=== PATIENT | male | born 1935 | race Caucasian/White ===

== ENCOUNTER 2019-05-24 18:20 | Inpatient (IN) | payer MEDICARE, BC ==
[2019-05-24 19:49] LABS: Basophils # (A) 0.1 k/uL (0-0.2); Basophils % (A) 1 %; Eosinophils # (A) 0.2 k/uL (0-0.7); Eosinophils % (A) 4 %; HCT 34.9 % (39.0-53.0); HGB 11.4 gm/dL (13.0-17.5); Hypochromasia Slight; Lymphocytes # (A) 1.3 k/uL (1.0-4.8); Lymphocytes % (A) 22 %; MCH 26.9 pg (25.0-35.0); MCHC 32.6 g/dL (31.0-37.0); MCV 82.6 fL (80.0-100.0); Mean Platelet Volume 6.2; Monocytes # (A) 0.5 k/uL (0-1.0); Monocytes % (A) 9 %; Neutrophils # (A) 3.5 k/uL (1.3-7.7); Neutrophils % (A) 62 %; Platelet Count 289 k/uL (150-450); RBC 4.23 m/uL (4.30-5.90); RDW 14.3 % (11.5-15.5); WBC 5.7 k/uL (3.8-10.6)
[2019-05-24 19:55] LABS: Albumin 3.5 g/dL (3.5-5.0); Calcium 8.9 mg/dL (8.4-10.2); Magnesium 1.9 mg/dL (1.6-2.3); Potassium 4.1 mmol/L (3.5-5.1); Total Bilirubin 0.8 mg/dL (0.2-1.3); Total Protein 6.8 g/dL (6.3-8.2)
[2019-05-24 20:05] LABS: D-Dimer 0.48 mg/L FEU (<0.60); Partial Thromboplastin Time 46.6 sec (22.0-30.0); Prothrombin Time 50.1 sec (9.0-12.0)
[2019-05-24 20:11] LABS: INR 5.2 (<1.2)
--- NOTE | 2019-05-24 20:25 | XR ---
EXAMINATION: XR chest 2V DATE AND TIME: 05/24/2019 7:34 PM CLINICAL INDICATION: PHH; difficulty breathing TECHNIQUE: Departmental protocol COMPARISON: None FINDINGS: There is a moderate right pleural effusion with prominent right lung base airlessness and associated silhouetting of the right hemidiaphragm. There is a smaller left pleural effusion with less left lung base airlessness. The upper and midlung zone show a mild reticular pattern of increased attenuation silhouetting the pu lmonary vasculature to a mild degree, suggesting mild pulmonary edema, interstitial phase. The cardia c silhouette is moderately enlarged. The skeletal structures and soft tissues are negative for acute findings. IMPRESSION: 1. BILATERAL PLEURAL EFFUSIONS AND BIBASILAR ATELECTASIS, GREATER ON THE RIGHT. CONCURRENT BRONCHOPN EUMONIA CAN BE CLINICALLY CONSIDERED. 2. Mild cardiogenic interstitial phase pulmonary edema pattern.
--- NOTE | 2019-05-24 20:48 | ED ---
SOB HPI - General Chief Complaint: Shortness of Breath Stated Complaint: KYLE Time Seen by Provider: 05/24/19 18:25 Source: patient Mode of arrival: wheelchair Limitations: no limitations - History of Present Illness Initial Comments: The patient is an 84-year-old male with past history of A. fib and congestive heart failure who presents to the emergency room with reported shortness of breath. Daughter is at bedside and helps provide history. States the patient has been hospitalized multiple times with past several months. He has suffered from shortness of breath however this has gotten progressively worse. Daughter states the patient cannot relate across a room without becoming short of breath. He also suffers from orthopnea and is forced to sleep in a chair. He does report to progressive bilateral lower extremity swelling. He has been hospitalized for diuresis. He was improved however has worsened again. He denies a cough or hemoptysis. No chest pain. States he was referred to an EP physician however has yet to see him. It has been recommended that the patient have cardioversion because of his symptoms. He is not on any rate controlling medications. The patient is on Coumadin for the A. fib as well as for bilateral lower extremity DVTs. The patient does have a [place] filter in place. Reports that he has been recently evaluated for PEs and they were negative. Denies hemoptysis, hematemesis. No changes in his bowel or bladder habits. There are no other alleviating, precipitating or modifying factors - Related Data Home Medications Medication Instructions Recorded Confirmed Furosemide [Lasix] 20 mg PO MOWEFR 05/24/19 05/24/19 HYDROcodone/APAP 5-325MG [[place] 1 tab PO BID 05/24/19 05/24/19 5-325] HYDROcodone/APAP 5-325MG [[place] 1 tab PO DAILY@1200 PRN 05/24/19 05/24/19 5-325] Lisinopril [Zestril] 2.5 mg PO DAILY 05/24/19 05/24/19 Omeprazole 20 mg PO BID 05/24/19 05/24/19 Previous Rx's Medication Instructions Recorded Carvedilol [Coreg] 3.125 mg PO BID-W/MEALS #60 tab 05/27/19 Potassium Chloride ER [K-Dur 20] 20 meq PO MOWEFR #12 tab.er.prt 10/28/19 Warfarin [Coumadin] 2.5 mg PO DAILY #0 05/27/19 Allergies Allergy/AdvReac Type Severity Reaction Status Date / Time Penicillins Allergy Swelling Verified 05/24/19 18:28 Review of Systems ROS Statement: Those systems with pertinent positive or pertinent negative responses have been documented in the HPI. ROS Other: All systems not noted in ROS Statement are negative. Past Medical History Past Medical History: Cancer, GERD/Reflux, Hyperlipidemia History of Any Multi-Drug Resistant Organisms: None Reported Past Surgical History: Back Surgery, Hernia Repair, Joint Replacement Past Psychological History: No Psychological Hx Reported Smoking Status: Former smoker Past Alcohol Use History: None Reported Past Drug Use History: None Reported General Exam Limitations: no limitations General appearance: alert, in no apparent distress Head exam: Present: atraumatic, normocephalic, normal inspection Eye exam: Present: normal appearance, PERRL, EOMI. Absent: scleral icterus, conjunctival injection, periorbital swelling ENT exam: Present: normal exam, mucous membranes moist Neck exam: Present: normal inspection. Absent: tenderness, meningismus, lymphadenopathy Respiratory exam: Present: rales, accessory muscle use. Absent: respiratory distress, wheezes, rhonchi, stridor Cardiovascular Exam: Present: regular rate, irregular rhythm, normal heart sounds. Absent: systolic murmur, diastolic murmur, rubs, gallop, clicks GI/Abdominal exam: Present: soft, normal bowel sounds. Absent: distended, tenderness, guarding, rebound, rigid Extremities exam: Present: normal inspection, full ROM, normal capillary refill. Absent: tenderness, pedal edema, joint swelling, calf tenderness Back exam: Present: normal inspection Neurological exam: Present: alert, oriented X3, CN II-XII intact Psychiatric exam: Present: normal affect, normal mood Skin exam: Present: warm, dry, intact, normal color. Absent: rash Course Vital Signs 05/24/19 05/24/19 05/24/19 18:23 20:00 21:14 Temperature 97.4 F L Pulse Rate 76 79 81 Respiratory 18 18 18 Rate Blood Pressure 135/80 139/98 139/92 O2 Sat by Pulse 98 99 99 Oximetry 05/24/19 22:00 Temperature 97.9 F Pulse Rate 73 Respiratory 18 Rate Blood Pressure 153/89 O2 Sat by Pulse 99 Oximetry Medical Decision Making - Medical Decision Making Upon arrival the patient is placed into room 7. A thorough history and physical exam is performed. A 12-lead EKG is performed which demonstrates A. fib with a controlled ventricular rate. Any time the patient does get up and move around in bed his heart rate does elevate. I did recommend laboratory studies and a chest x-ray. Hemoglobin is 11.4. INR 5.2. D-dimer is 0.48. BNP is elevated at 2560. Troponin 0.029. Chest x-ray does demonstrate signs of volume overload. There are bilateral pleural effusions as well as interstitial pulmonary edema. I discussed these results the patient. I did recommend diuresis. I did give the patient 40 mg of IV Lasix. I did recommend hospital admission for cardiology consult. I discussed case with Dr. Camarillo accepted admission for the patient. I will hold the patient's Coumadin tonight. The patient was in agreement with the treatment plan and he is awaiting a bed on the floor - Lab Data Result diagrams: 05/25/19 06:38 05/26/19 06:16 Lab Results 05/24/19 05/24/19 05/24/19 Range/Units 19:15 19:15 19:15 WBC 5.7 (3.8-10.6) k/uL RBC 4.23 L (4.30-5.90) m/uL Hgb 11.4 L (13.0-17.5) gm/dL Hct 34.9 L (39.0-53.0) % MCV 82.6 (80.0-100.0) fL MCH 26.9 (25.0-35.0) pg MCHC 32.6 (31.0-37.0) g/dL RDW 14.3 (11.5-15.5) % Plt Count 289 (150-450) k/uL Neutrophils % 62 % Lymphocytes % 22 % Monocytes % 9 % Eosinophils % 4 % Basophils % 1 % Neutrophils # 3.5 (1.3-7.7) k/uL Lymphocytes # 1.3 (1.0-4.8) k/uL Monocytes # 0.5 (0-1.0) k/uL Eosinophils # 0.2 (0-0.7) k/uL Basophils # 0.1 (0-0.2) k/uL Hypochromasia Slight PT 50.1 H (9.0-12.0) sec INR 5.2 H* (<1.2) APTT 46.6 H (22.0-30.0) sec D-Dimer 0.48 (<0.60) mg/L FEU Sodium 138 (137-145) mmol/L Potassium 4.1 (3.5-5.1) mmol/L Chloride 105 (98-107) mmol/L Carbon Dioxide 25 (22-30) mmol/L Anion Gap 8 mmol/L BUN 22 H (9-20) mg/dL Creatinine 0.97 (0.66-1.25) mg/dL Est GFR (CKD-EPI)AfAm 83 (>60 ml/min/1.73 sqM) Est GFR (CKD-EPI)NonAf 72 (>60 ml/min/1.73 sqM) Glucose 116 H (74-99) mg/dL Calcium 8.9 (8.4-10.2) mg/dL Magnesium 1.9 (1.6-2.3) mg/dL Total Bilirubin 0.8 (0.2-1.3) mg/dL AST 24 (17-59) U/L ALT 17 L (21-72) U/L Alkaline Phosphatase 108 (38-126) U/L Troponin I (0.000-0.034) ng/mL NT-Pro-B Natriuret Pep pg/mL Total Protein 6.8 (6.3-8.2) g/dL Albumin 3.5 (3.5-5.0) g/dL 05/24/19 05/24/19 Range/Units 19:15 19:15 WBC (3.8-10.6) k/uL RBC (4.30-5.90) m/uL Hgb (13.0-17.5) gm/dL Hct (39.0-53.0) % MCV (80.0-100.0) fL MCH (25.0-35.0) pg MCHC (31.0-37.0) g/dL RDW (11.5-15.5) % Plt Count (150-450) k/uL Neutrophils % % Lymphocytes % % Monocytes % % Eosinophils % % Basophils % % Neutrophils # (1.3-7.7) k/uL Lymphocytes # (1.0-4.8) k/uL Monocytes # (0-1.0) k/uL Eosinophils # (0-0.7) k/uL Basophils # (0-0.2) k/uL Hypochromasia PT (9.0-12.0) sec INR (<1.2) APTT (22.0-30.0) sec D-Dimer (<0.60) mg/L FEU Sodium (137-145) mmol/L Potassium (3.5-5.1) mmol/L Chloride (98-107) mmol/L Carbon Dioxide (22-30) mmol/L Anion Gap mmol/L BUN (9-20) mg/dL Creatinine (0.66-1.25) mg/dL Est GFR (CKD-EPI)AfAm (>60 ml/min/1.73 sqM) Est GFR (CKD-EPI)NonAf (>60 ml/min/1.73 sqM) Glucose (74-99) mg/dL Calcium (8.4-10.2) mg/dL Magnesium (1.6-2.3) mg/dL Total Bilirubin (0.2-1.3) mg/dL AST (17-59) U/L ALT (21-72) U/L Alkaline Phosphatase (38-126) U/L Troponin I 0.029 (0.000-0.034) ng/mL NT-Pro-B Natriuret Pep 2560 pg/mL Total Protein (6.3-8.2) g/dL Albumin (3.5-5.0) g/dL - EKG Data EKG Comments: EKG demonstrates atrial fibrillation with a ventricular rate 78. QRS 78. QTC 456. No acute ST segment elevations or depressions concerning for ischemic changes Disposition Clinical Impression: Congestive heart failure, Acute respiratory failure, Pleural effusion Disposition: ADMITTED IP TO THIS HOSP Condition: Good Is patient prescribed a controlled substance at d/c from ED?: No Decision to Admit Reason: Admit from EC Decision Date: 05/24/19 Decision Time: 20:57
[2019-05-24] MEDS ORDERED: FUROSEMIDE 10 MG/ML 4 ML VIAL IV STA (20:56)
[2019-05-24] MEDS ORDERED: NALOXONE 0.4 MG/ML 1 ML VIAL IV PRN (22:00)
[2019-05-24 23:04] VITALS: BMI 29.7
[2019-05-24] MEDS: HYDROcodone/APAP 5-325MG 1 EACH TAB PO SCH (23:24)
[2019-05-25] MEDS: PANTOPRAZOLE 40 MG TABLET PO SCH (06:04)
[2019-05-25] MEDS ORDERED: BUMETANIDE 0.25 MG/ML 4 ML VIAL IVP STA (06:38)
[2019-05-25 07:10] LABS: Basophils % (A) 1 %; Eosinophils # (A) 0.3 k/uL (0-0.7); Eosinophils % (A) 5 %; HCT 34.4 % (39.0-53.0); Hypochromasia Moderate; Lymphocytes # (A) 1.2 k/uL (1.0-4.8); Lymphocytes % (A) 22 %; MCH 26.8 pg (25.0-35.0); MCV 83.8 fL (80.0-100.0); Mean Platelet Volume 6.1; Monocytes # (A) 0.5 k/uL (0-1.0); Monocytes % (A) 9 %; Neutrophils # (A) 3.3 k/uL (1.3-7.7); Neutrophils % (A) 61 %; Platelet Count 262 k/uL (150-450); RDW 14.2 % (11.5-15.5); WBC 5.3 k/uL (3.8-10.6)
[2019-05-25 07:13] LABS: INR 4.6 (<1.2); Prothrombin Time 43.9 sec (9.0-12.0)
[2019-05-25 07:25] LABS: Calcium 8.7 mg/dL (8.4-10.2); Potassium 3.9 mmol/L (3.5-5.1)
[2019-05-25] MEDS: LISINOPRIL 2.5 MG TAB PO SCH (08:22)
[2019-05-25] MEDS: HYDROcodone/APAP 5-325MG 1 EACH TAB PO SCH ×2 (08:22→19:17)
[2019-05-25] MEDS ORDERED: HYDROcodone/APAP 5-325MG 1 EACH TAB PO SCH (09:00)
--- NOTE | 2019-05-25 09:53 | P.CRDCN ---
History of Present Illness Consult date: 05/25/19 Reason for Consult (text): A. fib with controlled ventricular rate, acute exacerbation of CHF History of present illness: This is an 84-year-old male patient of Dr. Wright with past medical history of chronic atrial fibrillation, chronic heart failure, DVT, gastroesophageal reflux disease, hyperlipidemia, DVT in the left leg status post [place] filter. Patient states he was initially diagnosed with atrial fibrillation about 3 months ago and has been following with Dr. Wright. He had a recent hospitalization March at [facility]. He underwent a left heart catheterization that showed mild to moderate nonobstructive coronary artery disease. Echocardiogram revealed EF of 50%. He was again hospitalized in April at [facility] time he was treated for right lower extremity cellulitis, persistent atrial fibrillation. He last saw Dr. Wright 2 weeks ago. He had a 24-hour Holter monitor in place. He received a call from Dr. Wright last night while the patient was in the emergency center to update him on the monitor but he did not give him the results at that time. Patient presented to [facility] emergency center due to shortness of breath much worse with exertion along with lower extremity edema. He has had some weight gain but in general he has been losing weight. He denies any cough or sputum production. He also experienced heaviness in his chest. His troponins were 0.029, 0.030, 0.033, INR 5.2, BUN 22 and creatinine 0.92. Hemoglobin 11.0, WBC 5.3, platelet count 262. I's were within normal limits. ProBNP 2560. EKG atrial fibrillation rate controlled. Patient was giving Lasix 40 mg IV push and Bumex 1 mg IV push in the emergency center. Patient states he has been up urinating every 1-2 times every hour. Edema is much improved. Heaviness in his chest is resolved. Review Of Systems: Constitutional: No fever, no chills, no night sweats. No weight change. No weakness, fatigue or lethargy. No daytime sleepiness. EENT: No headache. No blurred vision or double vision, no loss of vision. No loss of Hearing, no ringing in the ears, no dizziness. No nasal drainage or congestion. No epistaxis. No sore throat. Lungs: No shortness of breath, cough, no sputum production. No wheezing. Cardiovascular: Reports chest heaviness, reports lower extremity edema. No palpitations. No paroxysmal nocturnal dyspnea. No orthopnea. No lightheaded ness or dizziness. No syncopal episodes. Abdominal: No abdominal pain. No nausea, vomiting. No diarrhea. No constipation. No bloody or tarry stools.. No loss of appetite. Genitourinary: No dysuria, increased frequency, urgency. No urinary retention. Musculoskeletal: No myalgias. No muscle weakness, no gait dysfunction, no frequent falls. No back pain. No neck pain. Integumentary: No wounds-cellulitis resolved, no lesions. No rash or pruritus. No unusual bruising. No change in hair or nails. Neurologic: No aphasia. No facial droop. No change in mentation. No head injury. No headache. No paralysis. No paresthesia. Psychiatric: No depression. No anxiety. No mood swings. Endocrine: No abnormal blood sugars. No weight change. No excessive sweating or thirst. No cold intolerance. No weight change. Gen: This is an 84-year-old male. HEENT: Head is atraumatic, normocephalic. Pupils equal, round. Sclerae is anicteric. NECK: Supple. No JVD. No lymphadenopathy. No thyromegaly. LUNGS: Diminished in the bilateral bases. No wheezes or rhonchi. No intercostal retractions. HEART: Irregular rate and rhythm. No murmur. ABDOMEN: Soft. Bowel sounds are present. No masses. No tenderness. EXTREMITIES: No pedal edema. No calf tenderness. No cellulitis noted to the r ight lower extremity. SCDs in place. NEUROLOGICAL: Patient is awake, alert and oriented x3. Cranial nerves 2 through 12 are grossly intact. Assessment: Chronic atrial fibrillation with controlled response Acute exacerbation of diastolic heart failure with known EF of 50% Mild elevation in troponin, acute coronary syndrome ruled out History of coronary artery disease Gastroesophageal reflux disease Hyperlipidemia Plan: The patient will be started on Lasix 40 mg IV twice daily and potassium 20 mEq twice daily Start Coreg 3.125 mg twice daily Continue lisinopril 2.5 mg daily Repeat electrolytes and renal function in the morning Monitor I&O and daily weights I thank you kindly for this consultation we will be happy to follow along with you. Nurse practitioner note has been reviewed, I agree with documented findings and plan of care. Patient was seen and examined. Past Medical History Past Medical History: Atrial Fibrillation, Cancer, Heart Failure, Deep Vein Thrombosis (DVT), GERD/Reflux, Hyperlipidemia, Prostate Disorder Additional Past Medical History / Comment(s): Prostate CA with radiation and surgery; Skin CA with removal; emphysema; Diagnosed with AFib 2 months ago 02/2019; Halter Monitor removed last week 05/17/19; [place] filter placed for history DVT in left leg. History of Any Multi-Drug Resistant Organisms: None Reported Past Surgical History: Back Surgery, Hernia Repair, Joint Replacement Additional Past Surgical History / Comment(s): [place] filter placed 1999; Back surgery in 1999 Past Anesthesia/Blood Transfusion Reactions: No Reported Reaction Past Psychological History: No Psychological Hx Reported Smoking Status: Former smoker Past Alcohol Use History: None Reported Past Drug Use History: None Reported Medications and Allergies Home Medications Medication Instructions Recorded Confirmed Type Furosemide [Lasix] 20 mg PO MOWEFR 05/24/19 05/24/19 History HYDROcodone/APAP 5-325MG [[place] 1 tab PO BID 05/24/19 05/24/19 History 5-325] HYDROcodone/APAP 5-325MG [[place] 1 tab PO DAILY@1200 PRN 05/24/19 05/24/19 History 5-325] Lisinopril [Zestril] 2.5 mg PO DAILY 05/24/19 05/24/19 History Omeprazole 20 mg PO BID 05/24/19 05/24/19 History Warfarin [Coumadin] 2.5 mg PO TUTHSA 05/24/19 05/24/19 History Warfarin [Coumadin] 5 mg PO SUMOWEFR 05/24/19 05/24/19 History Allergies Allergy/AdvReac Type Severity Reaction Status Date / Time Penicillins Allergy Swelling Verified 05/24/19 18:28 Physical Exam Vitals: Vital Signs Temp Pulse Pulse Resp BP BP Pulse Ox 05/25/19 08:00 97.5 F L 85 18 126/69 100 05/25/19 03:04 68 18 119/71 98 05/24/19 23:18 97.5 F L 93 18 128/85 97 05/24/19 22:00 97.9 F 73 18 153/89 99 05/24/19 21:14 81 18 139/92 99 05/24/19 20:00 79 18 139/98 99 05/24/19 18:23 97.4 F L 76 18 135/80 98 Intake and Output 05/24/19 05/25/19 05/25/19 22:59 06:59 14:59 Intake Total 240 240 Output Total 1150 150 Balance -910 90 Intake: Oral 240 240 Output: Urine 1150 150 Other: Voiding Method Urinal # Voids 1 Weight 94.801 kg 92.2 kg Results 05/25/19 06:38 05/25/19 06:38 Cardiac Enzymes 05/24/19 05/24/19 05/25/19 Range/Units 19:15 19:15 00:57 AST 24 (17-59) U/L Troponin I 0.029 0.030 (0.000-0.034) ng/mL 05/25/19 Range/Units 06:38 AST (17-59) U/L Troponin I 0.033 (0.000-0.034) ng/mL Coagulation 05/24/19 05/25/19 Range/Units 19:15 06:38 PT 50.1 H 43.9 H (9.0-12.0) sec APTT 46.6 H (22.0-30.0) sec CBC 05/24/19 05/25/19 Range/Units 19:15 06:38 WBC 5.7 5.3 (3.8-10.6) k/uL RBC 4.23 L 4.10 L (4.30-5.90) m/uL Hgb 11.4 L 11.0 L (13.0-17.5) gm/dL Hct 34.9 L 34.4 L (39.0-53.0) % Plt Count 289 262 (150-450) k/uL Comprehensive Metabolic Panel 05/24/19 05/25/19 Range/Units 19:15 06:38 Sodium 138 140 (137-145) mmol/L Potassium 4.1 3.9 (3.5-5.1) mmol/L Chloride 105 104 (98-107) mmol/L Carbon Dioxide 25 28 (22-30) mmol/L BUN 22 H 21 H (9-20) mg/dL Creatinine 0.97 1.02 (0.66-1.25) mg/dL Glucose 116 H 99 (74-99) mg/dL Calcium 8.9 8.7 (8.4-10.2) mg/dL AST 24 (17-59) U/L ALT 17 L (21-72) U/L Alkaline Phosphatase 108 (38-126) U/L Total Protein 6.8 (6.3-8.2) g/dL Albumin 3.5 (3.5-5.0) g/dL Current Medications Generic Name Dose Route Start Last Admin Trade Name Freq PRN Reason Stop Dose Admin Hydrocodone Bitart/Acetaminophen 1 each 05/25/19 12:00 [place] 5-325 PO DAILY@1200 PRN Pain Hydrocodone Bitart/Acetaminophen 1 each 05/24/19 23:15 05/25/19 08:22 [place] 5-325 PO 1 each BID JHOAN Administration Lisinopril 2.5 mg 05/25/19 09:00 05/25/19 08:22 Zestril PO 2.5 mg DAILY JHOAN Administration Naloxone HCl 0.2 mg 05/24/19 22:00 Narcan IV Q2M PRN Opioid Reversal Pantoprazole Sodium 40 mg 05/25/19 07:30 05/25/19 06:04 Protonix PO 40 mg DAILY@0730 JHOAN Administration Intake and Output 05/24/19 05/25/19 05/25/19 22:59 06:59 14:59 Intake Total 240 240 Output Total 1150 150 Balance -910 90 Intake: Oral 240 240 Output: Urine 1150 150 Other: Voiding Method Urinal # Voids 1 Weight 94.801 kg 92.2 kg 05/25/19 06:38 05/25/19 06:38
--- NOTE | 2019-05-25 10:48 | P.HPIM ---
History of Present Illness H&P Date: 05/25/19 Chief Complaint: Shortness breath This is 84 years old male with past apical history significant for multiple hospitalization for atrial fibrillation and cardiac condition presents to the emergency department with shortness of breath. Patient stated that since last admission to the hospital he was discharged on Lasix to be taken every other day and patient felt worsening in his lower extremity edema associated with gradual worsening shortness of breath where patient was not able to ambulate in his house the way he used to bruit before and required short breaks during transfers while fixing his meals and doing his daily activity escalated to worsening shortness of breath with minimal activities even when turning his self and bed and later patient was not able to sleep and bed and was sleeping in recliner short of breath most of the time and decided to come into the emergency department. Chest x-ray showed vascular congestion, BNP was elevated, troponin was slightly elevated patient was started on Lasix and admitted for further evaluation. Patient denied any recent upper respiratory symptoms, fever, chills, nausea, vomiting, dumping, dizziness, lightheadedness or dysuria stated that his been in his regular state of health complaining of left shoulder pain that was managed outpatient by his primary care physician who was trying to inject him with steroids in the left shoulder but was not able to do so as patient went through a lot of cardiac testing recently including cardiac catheterization which showed mild coronary artery disease with preserved e jection fraction. Patient stated that he's compliment with his medication and doctors follow-up has been taken his medication on regular basis including the Lasix every other day and also patient stated that he does not eat salt in his diet. Patient is fairly independent in all his daily activity and has been responding well to Lasix that was given the emergency yesterday and Bumex that I provided 6 AM over the phone when contacted by nursing staff. Patient stated that he had history of 5 DVTs in the past and was managed with Coumadin via his vascular surgeon and has been maintained on the indication for long time Review of Systems All 14 systems reviewed and negative except as above Past Medical History Past Medical History: Atrial Fibrillation, Cancer, Heart Failure, Deep Vein Thrombosis (DVT), GERD/Reflux, Hyperlipidemia, Prostate Disorder Additional Past Medical History / Comment(s): Prostate CA with radiation and surgery; Skin CA with removal; emphysema; Diagnosed with AFib 2 months ago 02/2019; Halter Monitor removed last week 05/17/19; Ho filter placed for history DVT in left leg. History of Any Multi-Drug Resistant Organisms: None Reported Past Surgical History: Back Surgery, Hernia Repair, Joint Replacement Additional Past Surgical History / Comment(s): Ho filter placed 1999; Back surgery in 1999 Past Anesthesia/Blood Transfusion Reactions: No Reported Reaction Past Psychological History: No Psychological Hx Reported Smoking Status: Former smoker Past Alcohol Use History: None Reported Past Drug Use History: None Reported Medications and Allergies Home Medications Medication Instructions Recorded Confirmed Type Furosemide [Lasix] 20 mg PO MOWEFR 05/24/19 05/24/19 History HYDROcodone/APAP 5-325MG [[place] 1 tab PO BID 05/24/19 05/24/19 History 5-325] HYDROcodone/APAP 5-325MG [[place] 1 tab PO DAILY@1200 PRN 05/24/19 05/24/19 History 5-325] Lisinopril [Zestril] 2.5 mg PO DAILY 05/24/19 05/24/19 History Omeprazole 20 mg PO BID 05/24/19 05/24/19 History Warfarin [Coumadin] 2.5 mg PO TUTHSA 05/24/19 05/24/19 History Warfarin [Coumadin] 5 mg PO SUMOWEFR 05/24/19 05/24/19 History Allergies Allergy/AdvReac Type Severity Reaction Status Date / Time Penicillins Allergy Swelling Verified 05/24/19 18:28 Physical Exam Vitals: Vital Signs Temp Pulse Pulse Resp BP BP Pulse Ox 05/25/19 08:00 97.5 F L 85 18 126/69 100 05/25/19 03:04 68 18 119/71 98 05/24/19 23:18 97.5 F L 93 18 128/85 97 05/24/19 22:00 97.9 F 73 18 153/89 99 05/24/19 21:14 81 18 139/92 99 05/24/19 20:00 79 18 139/98 99 05/24/19 18:23 97.4 F L 76 18 135/80 98 Intake and Output 05/24/19 05/25/19 05/25/19 22:59 06:59 14:59 Intake Total 240 240 Output Total 1150 150 Balance -910 90 Intake: Oral 240 240 Output: Urine 1150 150 Other: Voiding Method Urinal # Voids 1 Weight 94.801 kg 92.2 kg Gen.: in stated age, patient in mild distress with composition Heart: Irregularly irregular rate and rhythm Lungs: Bilateral crackles on the lower bases Abdomen: Soft, no tenderness, positive bowel sounds in all 4 quadrant no guarding or rebound Skin: No new rash Psych: Alert and oriented 3 Neuro: No focal deficit Bilateral lower extremity 3+ pitting edema Results CBC & Chem 7: 05/25/19 06:38 05/25/19 06:38 Labs: Abnormal Lab Results - Last 24 Hours (Table) 05/24/19 05/24/19 05/24/19 Range/Units 19:15 19:15 19:15 RBC 4.23 L (4.30-5.90) m/uL Hgb 11.4 L (13.0-17.5) gm/dL Hct 34.9 L (39.0-53.0) % PT 50.1 H (9.0-12.0) sec INR 5.2 H* (<1.2) APTT 46.6 H (22.0-30.0) sec BUN 22 H (9-20) mg/dL Glucose 116 H (74-99) mg/dL ALT 17 L (21-72) U/L 05/25/19 05/25/19 05/25/19 Range/Units 06:38 06:38 06:38 RBC 4.10 L (4.30-5.90) m/uL Hgb 11.0 L (13.0-17.5) gm/dL Hct 34.4 L (39.0-53.0) % PT 43.9 H (9.0-12.0) sec INR 4.6 H (<1.2) APTT (22.0-30.0) sec BUN 21 H (9-20) mg/dL Glucose (74-99) mg/dL ALT (21-72) U/L Thrombosis Risk Factor Assmnt - Choose All That Apply Any of the Below Risk Factors Present?: Yes Each Factor Represents 1 point: Obesity (BMI >25), Swollen legs (current) Other Risk Factors: Yes Each Risk Factor Represents 3 Points: Age 75 years or older, History of DVT/PE Other congenital or acquired thrombophilia - If yes, enter type in comment: No Thrombosis Risk Factor Assessment Total Risk Factor Score: 8 Thrombosis Risk Factor Assessment Level: High Risk Assessment and Plan Assessment: 1. Dyspnea secondary to acute diastolic heart failure with exacerbation, preserved ejection fraction. 2. Atrial fibrillation with rapid ventricular response. 3. Recent cardiac catheterization with mild coronary artery disease and preserved ejection fraction. 4. Obesity area 5. Obstructive sleep apnea. 6. Hypertension. 7. Benign prostatic hypertrophy. 8. 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 9. Acute hyperkalemia. 10. Supratherapeutic INR. Plan discussed with cardiology at the bedside where we would like to maintain patient's on Lasix 40 mg IV push twice daily, continue cardioprotective medication per cardiology recommendation, no need for further imaging as patient had recent cardiac catheterization with ejection fraction greater than 50% and normal coronary arteries, we'll monitor fluid status closely, continue with strict I's and O's, low-salt diet and daily weight that was discussed with nursing staff at the bedside. We'll resume his home medication and have patient's on cardiac diet, hold his Coumadin and have pharmacy evaluate Coumadin management and consider switching patient to oral factor X inhibitors to avoid further complication with Coumadin. Will follow-up with cardiology recommendation in that regard. CODE STATUS requested by the patient to be DO NOT RESUSCITATE at this point
[2019-05-25] MEDS ORDERED: HYDROcodone/APAP 5-325MG 1 EACH TAB PO PRN (12:00)
[2019-05-25] MEDS: CARVEDILOL 3.125 MG TAB PO SCH ×2 (12:36→17:49)
[2019-05-25] MEDS: POTASSIUM CHLORIDE ER 20 MEQ TAB.ER PO SCH (20:55)
[2019-05-25] MEDS: FUROSEMIDE 10 MG/ML 4 ML VIAL IV SCH (20:55)
[2019-05-26] MEDS: PANTOPRAZOLE 40 MG TABLET PO SCH (06:32)
[2019-05-26] MEDS: CARVEDILOL 3.125 MG TAB PO SCH ×2 (06:32→17:59)
[2019-05-26 07:14] LABS: Calcium 8.7 mg/dL (8.4-10.2); Potassium 4.1 mmol/L (3.5-5.1)
[2019-05-26] MEDS: LISINOPRIL 2.5 MG TAB PO SCH (08:54)
[2019-05-26] MEDS: POTASSIUM CHLORIDE ER 20 MEQ TAB.ER PO SCH (08:54)
[2019-05-26] MEDS: HYDROcodone/APAP 5-325MG 1 EACH TAB PO SCH ×2 (08:55→20:47)
[2019-05-26] MEDS: FUROSEMIDE 10 MG/ML 4 ML VIAL IV SCH (08:55)
--- NOTE | 2019-05-26 09:45 | XR ---
EXAMINATION TYPE: XR shoulder complete LT , 3 VIEWS DATE OF EXAM ORDERED: 05/26/2019 HISTORY: pain. COMPARISON: None. FINDINGS: There are degenerative changes in the left AC joint. No fracture, dislocation or other acu te osseous lesion is seen. IMPRESSION: 1. NO ACUTE OSSEOUS LESION. 2. DEGENERATIVE CHANGE.
[2019-05-26 09:55] LABS: INR 2.9 (<1.2); Prothrombin Time 27.6 sec (9.0-12.0)
--- NOTE | 2019-05-26 10:57 | P.PN ---
Subjective Progress Note Date: 05/26/19 Principal diagnosis: Shortness of breath Patient feels much improved since yesterday, his current weight is 198 pounds down from 209 since yesterday and patient stated that he was able to put the bedside down yesterday when he slept and still responding well to diuretics. Patient is denying fever or chills productive cough or dysuria. Daughter at the bedside who had multiple concerns and questions that all addressed at the bedside Objective - Vital Signs Vital signs: Vital Signs Temp 98.2 F 05/26/19 08:00 Pulse 85 05/26/19 08:00 Resp 18 05/26/19 08:00 BP 116/58 05/26/19 08:00 Pulse Ox 96 05/26/19 08:00 Intake & Output 05/25/19 05/26/19 05/26/19 18:59 06:59 18:59 Intake Total 480 486 Output Total 1150 6200 Balance -670 -6200 486 Weight 90.2 kg Intake: Oral 480 486 Output: Urine 1150 6200 Other: Voiding Method Toilet # Voids 12 - Exam Gen.: in stated age, no acute distress Heart: Normal S1-S2 Lungs: Diminished bilaterally Abdomen: Soft, no tenderness, positive bowel sounds in all 4 quadrant no guarding or rebound Skin: No new rash Psych: Alert and oriented 3 Neuro: No focal deficit Lower extremity showed improvement in pitting edema - Labs CBC & Chem 7: 05/25/19 06:38 05/26/19 06:16 Labs: Abnormal Lab Results - Last 24 Hours (Table) 05/26/19 05/26/19 Range/Units 06:16 09:33 PT 27.6 H (9.0-12.0) sec INR 2.9 H (<1.2) BUN 25 H (9-20) mg/dL Glucose 104 H (74-99) mg/dL Assessment and Plan Assessment: 1. Dyspnea secondary to acute diastolic heart failure with exacerbation, preserved ejection fraction. 2. Atrial fibrillation with rapid ventricular response. 3. Recent cardiac catheterization with mild coronary artery disease and preserved ejection fraction. 4. Obesity area 5. Obstructive sleep apnea. 6. Hypertension. 7. Benign prostatic hypertrophy. 8. 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 9. Acute hyperkalemia. 10. Supratherapeutic INR. Patient seems to be improving since yesterday and I would like to continue current dose of diuretics to maintain negative fluid balance, continue cardioprotective medication, continue strict I's and O's and daily weight. Plan discussed with patient and his daughter at the bedside regarding management of Lasix on an outpatient basis and the necessity of keep checking on weight on regular basis final dose will be adjusted tomorrow prior to discharge. Shoulder x-ray revealed no significant pathology and orthopedic surgery is suggesting aspiration with possible injection to control the symptoms. Plan discussed with cardiology and orthopedic surgery
[2019-05-26] MEDS ORDERED: methylPREDNISolone ACETATE 40 MG/ML 1 ML VIAL INTRAARTIC STA (11:01)
[2019-05-26] MEDS ORDERED: LIDOCAINE 2% INJ 20 MG/ML (20 ML MDV) SQ STA (11:01)
--- NOTE | 2019-05-26 11:32 | P.PN ---
Progress Note - Text Progress Note Date: 05/26/19 This is an 84-year-old male who we are following regarding his left shoulder pain. Aspiration was attempted by Dr. Simeon earlier today and he obtained no fluid. Internal medicine has requested that we inject the shoulder with cortisone. Procedure: The anterior shoulder is prepped and injected with 40 mg of Depo- Medrol and 3 mL of 2% lidocaine using sterile technique. The patient tolerated the injection well. We will continue to follow. He is encouraged to perform gentle range of motion exercises mainly after the injection. He may wear sling for comfort.
[2019-05-26 12:25] LABS: Glucose,Whole Blood 105 mg/dL (75-99)
[2019-05-26] MEDS: INSULIN ASPART (NovoLOG) 100 UNIT/ML VIAL SQ SCH ×2 (12:35→17:14)
--- NOTE | 2019-05-26 12:50 | P.CNOR ---
History of Present Illness - [facility] Consult date: 05/26/19 History of present illness: The patient is very pleasant 84-year-old male with multiple medical problems who is currently admitted to internal medicine. We were consulted this morning for intractable left shoulder pain. The patient reports that he had a fall several months ago and has had intermittent shoulder pain since then. He reports an increase in his pain over the last 2-3 days. When asked to localize the pain he points diffusely over the anterior aspect of the left shoulder. He also states that it radiates down his arm into the elbow and fingers. The patient reports prior pain in the right shoulder which responded to intra-articular corticosteroid injection. The patient also was seen by one of our office pain specialists and had an upper cervical injection planned in the near future. The patient states that his current left shoulder pain is significantly worse than the right pain he experienced previously. He denies fevers or chills. Past Medical History Past Medical History: Atrial Fibrillation, Cancer, Heart Failure, Deep Vein Thrombosis (DVT), GERD/Reflux, Hyperlipidemia, Prostate Disorder Additional Past Medical History / Comment(s): Prostate CA with radiation and surgery; Skin CA with removal; emphysema; Diagnosed with AFib 2 months ago 02/2019; Halter Monitor removed last week 05/17/19; Ho filter placed for history DVT in left leg. History of Any Multi-Drug Resistant Organisms: None Reported Past Surgical History: Back Surgery, Hernia Repair, Joint Replacement Additional Past Surgical History / Comment(s): Ho filter placed 1999; Back surgery in 1999 Past Anesthesia/Blood Transfusion Reactions: No Reported Reaction Past Psychological History: No Psychological Hx Reported Smoking Status: Former smoker Past Alcohol Use History: None Reported Past Drug Use History: None Reported Medications and Allergies Home Medications Medication Instructions Recorded Confirmed Type Furosemide [Lasix] 20 mg PO MOWEFR 05/24/19 05/24/19 History HYDROcodone/APAP 5-325MG [[place] 1 tab PO BID 05/24/19 05/24/19 History 5-325] HYDROcodone/APAP 5-325MG [[place] 1 tab PO DAILY@1200 PRN 05/24/19 05/24/19 History 5-325] Lisinopril [Zestril] 2.5 mg PO DAILY 05/24/19 05/24/19 History Omeprazole 20 mg PO BID 05/24/19 05/24/19 History Warfarin [Coumadin] 2.5 mg PO TUTHSA 05/24/19 05/24/19 History Warfarin [Coumadin] 5 mg PO SUMOWEFR 05/24/19 05/24/19 History Allergies Allergy/AdvReac Type Severity Reaction Status Date / Time Penicillins Allergy Swelling Verified 05/24/19 18:28 Physical Examination On exam of the patient's left arm there is no swelling or overlying erythema or warmth in the shoulder and proximal arm. There is no palpable fluctuance or open wounds. His clavicle is nontender. There is mild tenderness over the before meals joint. There is diffuse tenderness over the anterior aspect of the shoulder and over the deltoid prominence. There is no tenderness along the s capular spine. There is mild discomfort with passive range of motion of the shoulder. He is nontender at the elbow or wrist. The fingers are warm and well perfused with brisk capillary refill. Results X-rays of the left shoulder show diffuse osteopenia and AC joint arthritis. There are no acute fractures or signs of other pathology. - Labs Labs: Abnormal Lab Results - Last 24 Hours (Table) 05/26/19 05/26/19 05/26/19 Range/Units 06:16 09:33 12:24 PT 27.6 H (9.0-12.0) sec INR 2.9 H (<1.2) BUN 25 H (9-20) mg/dL Glucose 104 H (74-99) mg/dL POC Glucose (mg/dL) 105 H (75-99) mg/dL H & H 05/24/19 05/25/19 Range/Units 19:15 06:38 Hgb 11.4 L 11.0 L (13.0-17.5) gm/dL Hct 34.9 L 34.4 L (39.0-53.0) % Coagulation 05/24/19 05/25/19 05/26/19 Range/Units 19:15 06:38 09:33 INR 5.2 H* 4.6 H 2.9 H (<1.2) Result Diagrams: 05/25/19 06:38 05/26/19 06:16 Assessment and Plan (1) Shoulder pain, left Current Visit: Yes Status: Acute Code(s): M25.512 - PAIN IN LEFT SHOULDER SNOMED Code(s): 61935035 Plan: The patient has subacute onset left shoulder pain, etiology likely will by factorial including AC joint arthritis, rotator cuff tendinitis versus tear, and referred pain from the cervical spine. Due to the significant increase in pain over the last 2-3 days which the patient described as being much more painful than the degenerative changes in his right shoulder that responded to an injection I suggested attempted to aspirate the shoulder to rule out infection or crystalline arthropathy. The shoulder aspirate was negative. I recommended conservative treatment with gentle shoulder range of motion, local modalities, and a sling. Internal medicine requested a steroid injection which was given by Robyn Hernandez PA-C. I also think the patient would benefit from continued follow-up with our pain specialists to address his cervical spine pathology which is likely contributing to his left upper extremity discomfort as an outpatient. We will continue to follow the patient while he is in-house. Thank you very much for allowing us to contribute to his care. Procedure: Verbal consent for a left shoulder aspiration was obtained. The posterior portal of the shoulder was prepped with ChloraPrep. Using sterile technique a 20-gauge spinal needle was inserted into the shoulder joint. The shoulder joint was gently manipulated and the needle entered the glenohumeral joint. A trace amount of clear synovial fluid was aspirated through the needle into the syringe, but not enough to send for evaluation. The needle was withdrawn and a Band-Aid was applied. Time with Patient: Greater than 30
--- NOTE | 2019-05-26 13:19 | P.PN ---
Subjective Progress Note Date: 05/26/19 This is an 84-year-old male patient of Dr. Wright with past medical history of chronic atrial fibrillation, chronic heart failure, DVT, gastroesophageal reflux disease, hyperlipidemia, DVT in the left leg status post Ho filter. Patient states he was initially diagnosed with atrial fibril lation about 3 months ago and has been following with Dr. Wright. He had a recent hospitalization March at [facility] [place]. He underwent a left heart catheterization that showed mild to moderate nonobstructive coronary artery disease. Echocardiogram revealed EF of 50%. He was again hospitalized in April at [facility] [place] time he was treated for right lower extremity cellulitis, persistent atrial fibrillation. He last saw Dr. Wright 2 weeks ago. He had a 24-hour Holter monitor in place. He received a call from Dr. Wright last night while the patient was in the emergency center to update him on the monitor but he did not give him the results at that time. Patient p resented to [facility] emergency center due to shortness of breath much worse with exertion along with lower extremity edema. He has had some weight gain but in general he has been losing weight. He denies any cough or sputum production. He also experienced heaviness in his chest. His troponins were 0.029, 0.030, 0.033, INR 5.2, BUN 22 and creatinine 0.92. Hemoglobin 11.0, WBC 5.3, platelet count 262. I's were within normal limits. ProBNP 2560. EKG atrial fibrillation rate controlled. Patient was giving Lasix 40 mg IV push and Bumex 1 mg IV push in the emergency center. Patient states he has been up urinating every 1-2 times every hour. Edema is much improved. He aviness in his chest is resolved. 05/26: Patient has been diuresing well since admission with a loss of 200 half kilograms. Lower extremity edema is much improved. He is currently off oxygen and pulse oxing 96% on room air. Patient states that his breathing is much improved today. When asked further questions. Patient admits to stopping his Lasix at home and he was drinking 64 ounces of water daily. We will plan to transition him to oral Lasix with possible discharge by tomorrow. Patient has been seen by orthopedics and start injection was done in the left shoulder. Repeat lab work reveals INR of 2.9 and patient will be given Coumadin and starting tonight at lower dose. BUN 25 creatinine 1.11, potassium 4.1. Gen: This is an 84-year-old male. Afebrile, blood pressure 116/58, pulse ox 96% on 2 L nasal cannula, heart rate 85. HEENT: Head is atraumatic, normocephalic. Pupils equal, round. Sclerae is anicteric. NECK: Supple. No JVD. No lymphadenopathy. No thyromegaly. LUNGS: Diminished in the bilateral bases. No wheezes or rhonchi. No intercostal retractions. HEART: Irregular rate and rhythm. No murmur. hospital monitor atrial fibrillation. ABDOMEN: Soft. Bowel sounds are present. No masses. No tenderness. EXTREMITIES: No pedal edema. No calf tenderness. No cellulitis noted to the right lower extremity. SCDs in place. NEUROLOGICAL: Patient is awake, alert and oriented x3. Cranial nerves 2 through 12 are grossly intact. Assessment: Chronic atrial fibrillation with controlled response Acute exacerbation of diastolic heart failure with known EF of 50% Mild elevation in troponin, acute coronary syndrome ruled out History of coronary artery disease Gastroesophageal reflux disease Hyperlipidemia Plan: Transition IV Lasix to 40 mg oral daily and decrease potassium to 20 mEq daily Continue Coreg 3.125 mg twice daily Continue lisinopril 2.5 mg daily Monitor I&O and daily weights Resume Coumadin at 1 mg tonight, INR in the morning Further recommendations to follow based upon clinical course I thank you kindly for this consultation we will be happy to follow along with you. Nurse practitioner note has been reviewed, I agree with documented findings and plan of care. Patient was seen and examined. Objective - Vital Signs Vital signs: Vital Signs Temp 98.2 F 05/26/19 08:00 Pulse 74 05/26/19 12:00 Resp 18 05/26/19 12:00 BP 87/52 05/26/19 12:00 Pulse Ox 96 05/26/19 12:00 Intake & Output 05/25/19 05/26/19 05/26/19 18:59 06:59 18:59 Intake Total 480 486 Output Total 1150 6200 Balance -670 -6200 486 Weight 90.2 kg Intake: Oral 480 486 Output: Urine 1150 6200 Other: Voiding Method Toilet # Voids 12 - Labs CBC & Chem 7: 05/25/19 06:38 05/26/19 06:16 Labs: Abnormal Lab Results - Last 24 Hours (Table) 05/26/19 05/26/19 05/26/19 Range/Units 06:16 09:33 12:24 PT 27.6 H (9.0-12.0) sec INR 2.9 H (<1.2) BUN 25 H (9-20) mg/dL Glucose 104 H (74-99) mg/dL POC Glucose (mg/dL) 105 H (75-99) mg/dL
[2019-05-26 17:13] LABS: Glucose,Whole Blood 130 mg/dL (75-99)
[2019-05-26] MEDS ORDERED: WARFARIN 1 MG TAB PO ONE (18:00)
[2019-05-26 19:58] LABS: Glucose,Whole Blood 118 mg/dL (75-99)
[2019-05-27 07:25] LABS: Glucose,Whole Blood 102 mg/dL (75-99)
[2019-05-27 07:41] LABS: INR 2.1 (<1.2); Prothrombin Time 20.5 sec (9.0-12.0)
[2019-05-27] MEDS: PANTOPRAZOLE 40 MG TABLET PO SCH (08:22)
[2019-05-27] MEDS: CARVEDILOL 3.125 MG TAB PO SCH (08:22)
[2019-05-27] MEDS: INSULIN ASPART (NovoLOG) 100 UNIT/ML VIAL SQ SCH (08:22)
[2019-05-27] MEDS: HYDROcodone/APAP 5-325MG 1 EACH TAB PO SCH (08:23)
[2019-05-27] MEDS: LISINOPRIL 2.5 MG TAB PO SCH (08:23)
[2019-05-27] MEDS ORDERED: FUROSEMIDE 40 MG TAB PO SCH (09:00)
[2019-05-27] MEDS ORDERED: POTASSIUM CHLORIDE ER 20 MEQ TAB.ER PO SCH (09:00)
--- NOTE | 2019-05-27 09:37 | P.PN ---
Subjective Progress Note Date: 05/27/19 This patient is an 84 year old male with multiple medical problems who is admitted to internal medicine. Orthopedics was consulted for left shoulder pain. The patient had a fall out of bed months ago, and he has been experiencing intermittent shoulder pain since this time. He then experienced an increase in shoulder pain within the last 2-3 days. He locates this pain to the anterior shoulder. He has was seen in our office by our pain specialists, and is planning on a cervical injection in the near future. An aspiration of the left shoulder was performed yesterday by Dr. Simeon, which was negative. The patient also received a cortisone injection following this aspiration by Robyn Hernandez PA-C. The patient states his shoulder is feeling better today. He is still experiencing pain with active range of motion of the shoulder, although this has improve from yesterday. He denies any additional complaints today. Objective - Vital Signs Vital signs: Vital Signs Temp 98.1 F 05/27/19 04:23 Pulse 83 05/27/19 04:23 Resp 16 05/27/19 04:23 BP 108/58 05/27/19 04:23 Pulse Ox 93 L 05/27/19 04:23 Intake & Output 05/26/19 05/27/19 05/27/19 18:59 06:59 18:59 Intake Total 486 590 Output Total 800 Balance -314 590 Intake: Oral 486 590 Output: Urine 800 Other: Voiding Method Toilet Toilet Bedside Commode # Voids 2 3 - Exam On examination, the patient is sitting up in bed in no apparent distress. He is alert and orientated x3. On inspection of the left shoulder, there is no swelling or overlying erythema. No palpable fluctuance or open wounds. Tenderness to palpation of the anterior shoulder, and over the deltoid. Nonten kellie to palpation of the clavicle, elbow, forearm, wrist, hand. No discomfort with PROM of the shoulder, mild pain with active ROM of the shoulder. Motor and sensory function are intact. Radial pulse palpable, the hand is warm and well perfused with brisk capillary refill. - Labs CBC & Chem 7: 05/25/19 06:38 05/26/19 06:16 Labs: Abnormal Lab Results - Last 24 Hours (Table) 05/26/19 05/26/19 05/26/19 Range/Units 09:33 12:24 17:12 PT 27.6 H (9.0-12.0) sec INR 2.9 H (<1.2) POC Glucose (mg/dL) 105 H 130 H (75-99) mg/dL 05/26/19 05/27/19 05/27/19 Range/Units 19:56 06:36 07:18 PT 20.5 H (9.0-12.0) sec INR 2.1 H (<1.2) POC Glucose (mg/dL) 118 H 102 H (75-99) mg/dL Assessment and Plan Plan: - I discussed the clinical findings with the patient. There is no surgical intervention planned at this time. - Recommended we continue with conservative treatment with gentle range of motion exercises, local modalities, and a sling. - Recommended the patient follow-up with our pain specialists to address his cervical spine as a possible contributor to his left upper extremity pain. - We will continue to follow the patient as he remains inpatient. Patient discussed with Dr. Simeon.
[2019-05-27 11:21] LABS: Glucose,Whole Blood 118 mg/dL (75-99)
[2019-05-27 12:23] VITALS: BP 107/56; PULSE 80; RESP 20; TEMP 97.6
--- NOTE | 2019-05-27 13:00 | P.DS ---
Providers Date of admission: 05/24/19 22:03 Expected date of discharge: 05/27/19 Attending physician: Andrez Camarillo Consults: 05/24/19 22:02 Consult Physician Urgent Consulting Provider: [facility] Consult Reason/Comments: afib with CVR, AECHF Do you want consulting provider notified?: Yes 05/25/19 19:20 Consult Physician Routine Consulting Provider: Jose Simeon Consult Reason/Comments: Left shoulder pain. Do you want consulting provider notified?: Yes Primary care physician: Osiel Wells [facility] Course: This is 84 years old male with past apical history significant for multiple hospitalization for atrial fibrillation and cardiac condition presents to the emergency department with shortness of breath. Patient stated that since last admission to the hospital he was discharged on Lasix to be taken every other day and patient felt worsening in his lower extremity edema associated with gradual worsening shortness of breath where patient was not able to ambulate in his house the way he used to bruit before and required short breaks during transfers while fixing his meals and doing his daily activity escalated to worsening shortness of breath with minimal activities even when turning his self and bed and later patient was not able to sleep and bed and was sleeping in recliner short of breath most of the time and decided to come into the emergency department. Chest x-ray showed vascular congestion, BNP was elevated, troponin was slightly elevated patient was started on Lasix and admitted for further evaluation. Patient denied any recent upper respiratory symptoms, fever, chills, nausea, vomiting, dumping, dizziness, lightheadedness or dysuria stated that his been in his regular state of health complaining of left shoulder pain that was managed outpatient by his primary care physician who was trying to inject him with steroids in the left shoulder but was not able to do so as patient went through a lot of cardiac testing recently including cardiac catheterization which showed mild coronary artery disease with preserved ejection fraction. Patient stated that he's compliment with his medication and doctors follow-up has been taken his medication on regular basis including the Lasix every other day and also patient stated that he does not eat salt in his diet. Patient is fairly independent in all his daily activity and has been responding well to Lasix that was given the emergency yesterday and Bumex that I provided 6 AM over the phone when contacted by nursing staff. Patient stated that he had history of 5 DVTs in the past and was managed with Coumadin via his vascular surgeon and has been maintained on the indication for long time 05/26: Patient feels much improved since yesterday, his current weight is 198 p ounds down from 209 since yesterday and patient stated that he was able to put the bedside down yesterday when he slept and still responding well to diuretics. Patient is denying fever or chills productive cough or dysuria. Daughter at the bedside who had multiple concerns and questions that all addressed at the bedside 05/27: Patient did admit yesterday to cardiology that he had stopped taking his Lasix and was drinking 64 ounces of water daily.yesterday IV Lasix were transitioned to oral Lasix.no new complaints. He has been cleared for discharge by cardiology. Patient was seen by orthopedics status post aspiration and cortisone injection. Plan is for gentle range of motion, sling and patient follow-up with Dr. Vasquez regarding cervical spine as source of his left upper extremity pain. Shoulder x-ray revealed no significant pathology. casino cashier manager has arranged home care. Patient will be discharged home today in stable condition. Discharge diagnoses: 1. Acute on chronic diastolic heart failure with EF of 50% 2. chronic atrial fibrillation. 3. Recent cardiac catheterization with mild coronary artery disease and preserved ejection fraction. 4. Obesity delete 5. Obstructive sleep apnea. 6. Hypertension. 7. Benign prostatic hypertrophy. 8. 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 9. Acute hyperkalemia. 10. Supratherapeutic INR. 11. Left shoulder pain Discharge plan: Home with [facility] Impression and plan of care have been directed as dictated by the signing physician. Donna Sykes nurse practitioner acting as scribe for signing physician. Patient Condition at Discharge: Good Plan - Discharge Summary Discharge Rx Participant: No New Discharge Prescriptions: New Carvedilol [Coreg] 3.125 mg PO BID-W/MEALS #60 tab Potassium Chloride ER [K-Dur 20] 20 meq PO MOWEFR #12 tab.er.prt Continue Lisinopril [Zestril] 2.5 mg PO DAILY Furosemide [Lasix] 20 mg PO MOWEFR HYDROcodone/APAP 5-325MG [[place] 5-325] 1 tab PO DAILY@1200 PRN PRN Reason: Pain HYDROcodone/APAP 5-325MG [[place] 5-325] 1 tab PO BID Omeprazole 20 mg PO BID Changed Warfarin [Coumadin] 2.5 mg PO DAILY #0 Discontinued Warfarin [Coumadin] 5 mg PO SUMOWEFR Discharge Medication List Furosemide [Lasix] 20 mg PO MOWEFR 05/24/19 [History] HYDROcodone/APAP 5-325MG [[place] 5-325] 1 tab PO BID 05/24/19 [History] HYDROcodone/APAP 5-325MG [[place] 5-325] 1 tab PO DAILY@1200 PRN 05/24/19 [History] Lisinopril [Zestril] 2.5 mg PO DAILY 05/24/19 [History] Omeprazole 20 mg PO BID 05/24/19 [History] Carvedilol [Coreg] 3.125 mg PO BID-W/MEALS #60 tab 05/27/19 [Rx] Potassium Chloride ER [K-Dur 20] 20 meq PO WE #12 tab.er.prt 05/27/19 [Rx] Warfarin [Coumadin] 2.5 mg PO DAILY #0 05/27/19 [Rx] Follow up Appointment(s)/Referral(s): Osiel Wells MD [Primary Care Provider] - 05/29/19 9:45 am Chris Wright MD [STAFF PHYSICIAN] - 06/17/19 4:00 pm Pradip Vasquez DO [Doctor of Osteopathic Medicine] - 06/06/19 2:10 pm Patient Instructions/Handouts: Potassium Chloride (By mouth), Carvedilol (By mouth), Heart Failure (DC), Pleural Effusion (DC), Acute Respiratory Failure (ED)
[2019-05-27] MEDS ORDERED: WARFARIN 5 MG TAB PO ONE (18:00)
--- NOTE | 2019-06-04 13:05 | CDI ---
Documentation Clarification Form Date: 06/04/2019 From: JOAO Ko; Isabel Strickland, Photo Machine Operator Phone: If you have any questions about this query, please contact Isabel Strickland, at between 8 am and 5 pm. Admit Date: 05/24/2019 Patient Name: Chris Spicer Visit: [id number] Discharge Date: 05/27/2019 The Clinical Documentation Specialists (CD) and [facility] Coding Staff appreciate your assistance in clarifying documentation. Please respond to the clarification below the line at the bottom and electronically sign. The CDI [facility] Coding Staff will review the response and follow-up if needed. Please note: Queries are made part of the Legal Health Record. If you have any questions, please contact the author of this message via ITS. Dr Andrez Camarillo, The patient presented with increasing shortness of breath, acute diastolic heart failure exacerbation and atrial fibrillation. History/Risk factors: Atrial fibrillation, congestive heart failure, HTN, obesity, YANY, Emphysema. Clinical Indicators: Lower extremity edema, shortness of breath Radiology Findings: Bilateral pleural effusions and bibasilar atelectasis. Lab: BNP 2560, GFR 80, CR 1.02 & 1.11. Vital Signs: temp 97.5, pulse 85, resp 18, BP 126/69 Treatment: IV Lasix In your professional opinion, can you please clarify if findings signify? CKD Stage 1 (GFR >90) CKD Stage 2 (GRF 60-89) CKD Stage 3 (GFR 30-59) CKD Stage 4 (GFR 15-29) CKD Stage 5 (GFR <15) ESRD Other, please specify Unable to determine. _ CKD 2 MTDD
--- NOTE | 2019-06-04 13:07 | CDI ---
Documentation Clarification Form Date: 06/04/2019 From: JOAO Ko; Isabel Strickland, Repairer [employer] Phone: If you have any questions about this query, please contact Isabel Strickland, at between 8 am and 5 pm. Admit Date: 05/24/2019 Patient Name: Chris Spicer Visit: [id number] Discharge Date: 05/27/2019 The Clinical Documentation Specialists (CD) and [facility] Coding Staff appreciate your assistance in clarifying documentation. Please respond to the clarification below the line at the bottom and electronically sign. The CDI [facility] Coding Staff will review the response and follow-up if needed. Please note: Queries are made part of the Legal Health Record. If you have any questions, please contact the author of this message via ITS. Dr Camarillo, The patient presented with increasing shortness of breath and acute hypoxic respiratory failure is documented in final ED impression. History/Risk factors: Atrial fibrillation, congestive heart failure, obesity, YANY, Emphysema. Clinical Indicators: Rales, accessory muscle use. Pulse ox 98% on RA Radiology Findings: Bilateral pleural effusions and bibasilar atelectasis.. Vital Signs: temp 97.5, pulse 85, resp 18, BP 126/69 In your professional opinion, can you please clarify? Acute hypoxic respiratory failure ruled in? Acute hypoxic respiratory failure ruled out? Other, please specify Unable to determine. __ no respiratory failure. po 98% MTDD
== END 2019-05-27 12:55 | disposition home or self-care (01) | DRG 291 ==
LOC: EC 18:20 → 3SCARD 22:03 → 3NMEDONC 05-26 13:47
PROVIDERS: ADMIT Internal Medicine; ATTEND Internal Medicine
PROC: 3E0U33Z Introduction of Anti-inflammatory into Joints, Percutaneous Approach (ICD-10-PCS; principal; 2019-05-26)
PROC: 3E0U3BZ Introduction of Anesthetic Agent into Joints, Percutaneous Approach (ICD-10-PCS; principal; 2019-05-26)
DX: I13.0 Hypertensive heart and chronic kidney disease with heart failure and stage 1 through stage 4 chronic kidney disease, or unspecified chronic kidney disease (principal); I50.33 Acute on chronic diastolic (congestive) heart failure; I48.19 Other persistent atrial fibrillation; E66.9 Obesity, unspecified; Z68.29 Body mass index [BMI] 29.0-29.9, adult; E78.5 Hyperlipidemia, unspecified; E87.5 Hyperkalemia; G47.33 Obstructive sleep apnea (adult) (pediatric); I25.10 Atherosclerotic heart disease of native coronary artery without angina pectoris; J43.9 Emphysema, unspecified; K21.9 Gastro-esophageal reflux disease without esophagitis; N40.0 Benign prostatic hyperplasia without lower urinary tract symptoms; R79.1 Abnormal coagulation profile; Z66 Do not resuscitate; Z79.01 Long term (current) use of anticoagulants; Z79.899 Other long term (current) drug therapy; Z85.46 Personal history of malignant neoplasm of prostate; Z86.718 Personal history of other venous thrombosis and embolism; Z87.891 Personal history of nicotine dependence; Z95.828 Presence of other vascular implants and grafts; Z88.0 Allergy status to penicillin; M25.512 Pain in left shoulder; D63.8 Anemia in other chronic diseases classified elsewhere; N18.2 Chronic kidney disease, stage 2 (mild)
CPT/HCPCS: 36415; 71046; 80048; 80053; 83735; 83880; 84484; 85025; 85379; 85610; 85730; 93005; 96374; 99285

== ENCOUNTER 2019-06-05 08:28 | Emergency (ER) | payer MEDICARE, BC ==
[2019-06-05 08:57] VITALS: TEMP 97.7
--- NOTE | 2019-06-05 09:13 | ED ---
Male Urogenital HPI - General Chief complaint: Urogenital Stated complaint: GI bleed Time Seen by Provider: 06/05/19 08:40 Source: patient, RN notes reviewed Mode of arrival: ambulatory Limitations: no limitations - History of Present Illness Initial comments: This 84-year-old male with a history of prostate cancer with prostatectomy also history of recent admission for irregular heart rate and CHF who presents today with complaints of hematuria. He states he was constipated and did digitally disimpact himself yesterday as well as a bleeding from that but started developing hematuria this morning with dysuria no fevers chills or sweats he states he did feel warm well 5 minutes. No shortness breath palpitations or other symptoms reported at this time. No prior history kidney stones. He does take Coumadin. He has history of DVT in the right lower extremity he states his edema that he had from his previous admission had markedly improved. MD Complaint: dysuria, other - Related Data Home Medications Medication Instructions Recorded Confirmed Furosemide [Lasix] 20 mg PO MOWEFR 05/24/19 06/05/19 HYDROcodone/APAP 5-325MG [[place] 1 tab PO BID 05/24/19 06/05/19 5-325] HYDROcodone/APAP 5-325MG [[place] 1 tab PO DAILY@1200 PRN 05/24/19 06/05/19 5-325] Lisinopril [Zestril] 2.5 mg PO DAILY 05/24/19 06/05/19 Omeprazole 20 mg PO BID 05/24/19 06/05/19 Calcium Carbonate/Vitamin D3 1 cap PO DAILY 06/05/19 06/05/19 [Calcium 600-Vit D3 500 Softgel] Cholecalciferol [Vitamin D3 (25 1,000 unit PO DAILY 06/05/19 06/05/19 Mcg = 1000 Iu)] Cyanocobalamin [Vitamin B-12] 500 mcg PO DAILY 06/05/19 06/05/19 Warfarin [Coumadin] 2.5 mg PO QAM 06/05/19 06/05/19 Previous Rx's Medication Instructions Recorded Carvedilol [Coreg] 3.125 mg PO BID-W/MEALS #60 tab 05/27/19 Potassium Chloride ER [K-Dur 20] 20 meq PO MOWEFR #12 tab.er.prt 05/27/19 Allergies Allergy/AdvReac Type Severity Reaction Status Date / Time Penicillins Allergy Swelling-SHOT Verified 06/05/19 09:42 ONLY Review of Systems ROS Statement: Those systems with pertinent positive or pertinent negative responses have been documented in the HPI. ROS Other: All systems not noted in ROS Statement are negative. Past Medical History Past Medical History: Atrial Fibrillation, Cancer, GERD/Reflux, Hyperlipidemia Additional Past Medical History / Comment(s): Prostate CA with radiation and s urgery; Skin CA with removal; emphysema; Diagnosed with AFib 2 months ago 02/2019; Halter Monitor removed last week 05/17/19; [place] filter placed for history DVT in left leg. History of Any Multi-Drug Resistant Organisms: None Reported Past Surgical History: Back Surgery, Hernia Repair, Joint Replacement Additional Past Surgical History / Comment(s): Prospect filter placed 1999; Back surgery in 1999 Past Anesthesia/Blood Transfusion Reactions: No Reported Reaction Past Psychological History: No Psychological Hx Reported Smoking Status: Former smoker Past Alcohol Use History: None Reported Past Drug Use History: None Reported General Exam - General Exam Comments Initial Comments: This is a well-developed well-nourished awake alert oriented 3 male Limitations: no limitations General appearance: alert, in no apparent distress Head exam: Present: atraumatic, normocephalic, normal inspection Eye exam: Present: normal appearance, PERRL, EOMI. Absent: scleral icterus, conjunctival injection, periorbital swelling ENT exam: Present: normal exam, mucous membranes moist Neck exam: Present: normal inspection. Absent: tenderness, meningismus, lymphadenopathy Respiratory exam: Present: normal lung sounds bilaterally. Absent: respiratory distress, wheezes, rales, rhonchi, stridor Cardiovascular Exam: Present: regular rate, normal rhythm, normal heart sounds. Absent: systolic murmur, diastolic murmur, rubs, gallop, clicks GI/Abdominal exam: Present: soft, normal bowel sounds. Absent: distended, tenderness, guarding, rebound, rigid Rectal exam: Present: deferred Extremities exam: Present: normal inspection, full ROM, normal capillary refill. Absent: tenderness, pedal edema, joint swelling, calf tenderness Back exam: Present: normal inspection Neurological exam: Present: alert, oriented X3, CN II-XII intact Psychiatric exam: Present: normal affect, normal mood Skin exam: Present: warm, dry, intact, normal color. Absent: rash Course Vital Signs 06/05/19 06/05/19 06/05/19 08:31 08:54 12:00 Temperature 97.6 F 97.7 F Pulse Rate 79 72 Respiratory 18 18 Rate Blood Pressure 133/72 111/55 O2 Sat by Pulse 98 100 Oximetry Medical Decision Making - Medical Decision Making Patient does present with hematuria. No evidence of infectious process at this time. I did discuss the case with patient and family members as well as with Dr. Wells. Patient will hold his Coumadin tonight and follow-up in the office tomorrow. I also did suggest the patient increase his oral fluids for tonight. - Lab Data Result diagrams: 06/05/19 09:20 06/05/19 09:20 Lab Results 06/05/19 06/05/19 06/05/19 Range/Units 09:20 09:20 09:20 WBC (3.8-10.6) k/uL RBC (4.30-5.90) m/uL Hgb (13.0-17.5) gm/dL Hct (39.0-53.0) % MCV (80.0-100.0) fL MCH (25.0-35.0) pg MCHC (31.0-37.0) g/dL RDW (11.5-15.5) % Plt Count (150-450) k/uL Neutrophils % % Lymphocytes % % Monocytes % % Eosinophils % % Basophils % % Neutrophils # (1.3-7.7) k/uL Lymphocytes # (1.0-4.8) k/uL Monocytes # (0-1.0) k/uL Eosinophils # (0-0.7) k/uL Basophils # (0-0.2) k/uL Hypochromasia PT 35.8 H (9.0-12.0) sec INR 3.7 H (<1.2) Sodium 138 (137-145) mmol/L Potassium 4.0 (3.5-5.1) mmol/L Chloride 108 H (98-107) mmol/L Carbon Dioxide 22 (22-30) mmol/L Anion Gap 8 mmol/L BUN 22 H (9-20) mg/dL Creatinine 1.06 (0.66-1.25) mg/dL Est GFR (CKD-EPI)AfAm 74 (>60 ml/min/1.73 sqM) Est GFR (CKD-EPI)NonAf 64 (>60 ml/min/1.73 sqM) Glucose 119 H (74-99) mg/dL Calcium 8.9 (8.4-10.2) mg/dL Total Bilirubin 1.1 (0.2-1.3) mg/dL AST 23 (17-59) U/L ALT 23 (21-72) U/L Alkaline Phosphatase 96 (38-126) U/L Total Protein 6.5 (6.3-8.2) g/dL Albumin 3.3 L (3.5-5.0) g/dL Urine Color Dark Red Urine Appearance Bloody (Clear) Urine pH 6.0 (5.0-8.0) Ur Specific [place] 1.008 (1.001-1.035) Urine Protein 2+ H (Negative) Urine Glucose (UA) Negative (Negative) Urine Ketones Negative (Negative) Urine Blood Large H (Negative) Urine Nitrite Negative (Negative) Urine Bilirubin Negative (Negative) Urine Urobilinogen <2.0 (<2.0) mg/dL Ur Leukocyte Esterase Large (Negative) Urine RBC >182 H (0-5) /hpf Urine WBC 35 H (0-5) /hpf Urine Bacteria Few H (None) /hpf 06/05/19 Range/Units 09:20 WBC 7.1 (3.8-10.6) k/uL RBC 4.12 L (4.30-5.90) m/uL Hgb 10.8 L (13.0-17.5) gm/dL Hct 33.9 L (39.0-53.0) % MCV 82.4 (80.0-100.0) fL MCH 26.2 (25.0-35.0) pg MCHC 31.8 (31.0-37.0) g/dL RDW 14.9 (11.5-15.5) % Plt Count 294 (150-450) k/uL Neutrophils % 76 % Lymphocytes % 11 % Monocytes % 7 % Eosinophils % 4 % Basophils % 1 % Neutrophils # 5.3 (1.3-7.7) k/uL Lymphocytes # 0.8 L (1.0-4.8) k/uL Monocytes # 0.5 (0-1.0) k/uL Eosinophils # 0.3 (0-0.7) k/uL Basophils # 0.1 (0-0.2) k/uL Hypochromasia Slight PT (9.0-12.0) sec INR (<1.2) Sodium (137-145) mmol/L Potassium (3.5-5.1) mmol/L Chloride (98-107) mmol/L Carbon Dioxide (22-30) mmol/L Anion Gap mmol/L BUN (9-20) mg/dL Creatinine (0.66-1.25) mg/dL Est GFR (CKD-EPI)AfAm (>60 ml/min/1.73 sqM) Est GFR (CKD-EPI)NonAf (>60 ml/min/1.73 sqM) Glucose (74-99) mg/dL Calcium (8.4-10.2) mg/dL Total Bilirubin (0.2-1.3) mg/dL AST (17-59) U/L ALT (21-72) U/L Alkaline Phosphatase (38-126) U/L Total Protein (6.3-8.2) g/dL Albumin (3.5-5.0) g/dL Urine Color Urine Appearance (Clear) Urine pH (5.0-8.0) Ur Specific [place] (1.001-1.035) Urine Protein (Negative) Urine Glucose (UA) (Negative) Urine Ketones (Negative) Urine Blood (Negative) Urine Nitrite (Negative) Urine Bilirubin (Negative) Urine Urobilinogen (<2.0) mg/dL Ur Leukocyte Esterase (Negative) Urine RBC (0-5) /hpf Urine WBC (0-5) /hpf Urine Bacteria (None) /hpf - Radiology Data Radiology results: report reviewed (I did review the imaging and report no acute findings.), image reviewed Disposition Clinical Impression: Hematuria, Coumadin toxicity Disposition: HOME SELF-CARE Condition: Good Instructions (If sedation given, give patient instructions): Hematuria (ED) Additional Instructions: Hold Coumadin tonight follow-up with Dr. Wells tomorrow in the office. Is patient prescribed a controlled substance at d/c from ED?: No Referrals: Osiel Wells MD [Primary Care Provider] - 1-2 days
--- NOTE | 2019-06-05 09:39 | XR ---
EXAMINATION TYPE: XR KUB DATE OF EXAM: 06/05/2019 9:27 AM CLINICAL HISTORY: Hematuria, abdominal pain, and constipation TECHNIQUE: Single supine KUB image of the abdomen is obtained. COMPARISON: None. FINDINGS: There is a small right pleural effusion that is layering and suspected trace left pleural e ffusion. Bilateral hip prostheses are seen as well as postsurgical changes of the pelvis and inferior vena cava filter. No dilated large or small bowel. No suspicious calcification in the abdomen or pel vis. Diffuse osseous demineralization and S-shaped scoliosis with moderate degenerative changes of th e spine. IMPRESSION: 1. Nonobstructive bowel gas pattern. No significant colonic retention seen radiographically. 2. Incidentally noted small right and trace left pleural effusions.
[2019-06-05 09:44] LABS: INR 3.7 (<1.2); Prothrombin Time 35.8 sec (9.0-12.0)
[2019-06-05 10:03] LABS: Albumin 3.3 g/dL (3.5-5.0); Calcium 8.9 mg/dL (8.4-10.2); Total Bilirubin 1.1 mg/dL (0.2-1.3); Total Protein 6.5 g/dL (6.3-8.2)
[2019-06-05 10:10] LABS: Bacteria,Urine Few /hpf; RBC,Urine >182 /hpf (0-5)
[2019-06-05 10:14] LABS: Appearance,Urine Bloody (Clear); Color,Urine Dark Red; Specific Gravity,Urine 1.008 (1.001-1.035)
[2019-06-05 10:15] LABS: Bilirubin,Urine Negative (Negative); Blood,Urine Large (Negative); Glucose,Urine (UA) Negative (Negative); Ketones,Urine Negative (Negative); Protein,Urine 2+ (Negative)
[2019-06-05 10:16] LABS: Leukocyte Esterase,Urine Large (Negative); Nitrite,Urine Negative (Negative); Urobilinogen,Urine <2.0 mg/dL (<2.0)
[2019-06-05 12:42] LABS: Basophils # (A) 0.1 k/uL (0-0.2); Basophils % (A) 1 %; Eosinophils # (A) 0.3 k/uL (0-0.7); Eosinophils % (A) 4 %; HCT 33.9 % (39.0-53.0); HGB 10.8 gm/dL (13.0-17.5); Hypochromasia Slight; Lymphocytes # (A) 0.8 k/uL (1.0-4.8); Lymphocytes % (A) 11 %; MCH 26.2 pg (25.0-35.0); MCHC 31.8 g/dL (31.0-37.0); MCV 82.4 fL (80.0-100.0); Mean Platelet Volume 7.1; Monocytes # (A) 0.5 k/uL (0-1.0); Monocytes % (A) 7 %; Neutrophils # (A) 5.3 k/uL (1.3-7.7); Neutrophils % (A) 76 %; Platelet Count 294 k/uL (150-450); RBC 4.12 m/uL (4.30-5.90); RDW 14.9 % (11.5-15.5); WBC 7.1 k/uL (3.8-10.6)
[2019-06-05 13:37] VITALS: BP 117/67; PULSE 80; RESP 16
== END 2019-06-05 13:32 | disposition home or self-care (01) ==
LOC: EC 08:28
DX: R31.9 Hematuria, unspecified (principal); T45.515A Adverse effect of anticoagulants, initial encounter; R30.0 Dysuria; I48.91 Unspecified atrial fibrillation; I50.9 Heart failure, unspecified; K21.9 Gastro-esophageal reflux disease without esophagitis; Z87.891 Personal history of nicotine dependence; Z88.0 Allergy status to penicillin; Z79.01 Long term (current) use of anticoagulants; Z79.891 Long term (current) use of opiate analgesic; Z79.899 Other long term (current) drug therapy; Z86.718 Personal history of other venous thrombosis and embolism; Z85.46 Personal history of malignant neoplasm of prostate; Z90.79 Acquired absence of other genital organ(s)
CPT/HCPCS: 36415; 74018; 80053; 81001; 85025; 85610; 87086; 99285

== ENCOUNTER → 2021-02-19 | Outpatient (CLI) | payer MEDICARE, BC ==
--- NOTE | 2021-02-23 14:39 | PE ---
EXAMINATION TYPE: PET CT fusion skull to thigh DATE OF EXAM: 02/21/2021 COMPARISON: CT chest 01/12/2012. There are no interval CT examinations. Prior PET/CT: None HISTORY: Prostate cancer, lung cancer TECHNIQUE: Following the intravenous administration of 12.14 mCi of F-18 FDG, whole body images are performed from the skull base to the midthigh. Images are reviewed on the computer in the coronal, a xial, and sagittal planes. Reconstructed rotating images are created on independent workstation and reviewed on the computer. A localization and attenuation correction CT is performed in conjunction with the PET scan. DLP: 456.20 mGycm SCAN: Initial Blood glucose: 95 mg/dL Average Mediastinum SUV: 1.54 Average Liver SUV: 2.05 FINDINGS: NECK: There is increased uptake at the left sternal clavicular junction. This has an SUV value of 3. 53. Inflammatory change or metastatic lesion could be considered. THORAX: No abnormal uptake ABDOMEN: No abnormal uptake PELVIS: Beam hardening artifacts limits the level through the prostate. Uptake within the prostate ca nnot be identified adjacent to the markedly intense urinary bladder. OSSEOUS STRUCTURES: No abnormal uptake LOCALIZATION CT: There is a small right pleural effusion. Minimal pericardial effusion is present. So me compressive atelectasis is adjacent to the right pleural effusion. Filters within the inferior azeb a cava. Bilateral hip prostheses cause beam hardening artifact on the CT examination limiting the low er pelvis. COMPARISON: Pleural effusion and pericardial effusions are new. IMPRESSION: 1. There is some mild uptake at the left sternal clavicular junction. This is nonspecific and could b e related to inflammatory change. Findings could be related to metastasis. Solitary nature suggests t his to be less likely. 2. Suspicious uptake to suggest metastatic disease is not otherwise evident. 3. Small right pleural effusion. 4. Minimal pericardial effusion. 5. Compressive atelectasis adjacent to the pleural effusion. 6. PET prostate is nondiagnostic due to beam hardening artifact and adjacent radiotracer within urina ry bladder.
== END | disposition home or self-care (01) ==
LOC: RADPETMAIN 12:21
PROVIDERS: ATTEND Internal Medicine Critical Care Medicine
DX: C61 Malignant neoplasm of prostate (principal); C34.90 Malignant neoplasm of unspecified part of unspecified bronchus or lung; J90 Pleural effusion, not elsewhere classified; I31.3 Pericardial effusion (noninflammatory); J98.11 Atelectasis
CPT/HCPCS: 78815; A9552

== ENCOUNTER → 2021-03-19 | Day surgery (SDC) | payer MEDICARE, BC ==
[~2021-03-19] MED LIST: SODIUM CHLORIDE 0.9% 500 ML 500 ML in EMPTY BAG 1 BAG IV PRN
[2021-03-19 11:59] VITALS: TEMP 97.7
[2021-03-19 12:16] LABS: INR 1.3 (<1.2); Prothrombin Time 13.2 sec (9.0-12.0)
--- NOTE | 2021-03-19 13:00 | P.PCN ---
Date of Procedure: 03/19/21 Preoperative Diagnosis: right sided pleural effusion Postoperative Diagnosis: right sided pleural effusion Procedure(s) Performed: Thoracentesis Anesthesia: local Surgeon: Bala Kim Estimated Blood Loss (ml): 0 Condition: stable Disposition: same day Operative Findings: A time out was performed and the chest x-ray was reviewed, the appropriate side was confirmed and marked. My hands were washed immediately prior to the procedure. I wore a surgical cap, mask with protective eyewear, sterile gown and sterile gloves throughout the procedure. The patient was prepped and draped in a sterile manner using chlorhexidine scrub after the appropriate level was percussed and confirmed by ultrasound. 1% lidocaine was used to anesthesize the skin, subcutaneous tissue, superior aspect of the rib periosteum and parietal pleura. A finder needle was then introduced over the superior aspect of the rib to locate the pleural fluid; 2colored fluid was aspirated at a depth of approximately 2 cm. A 10-blade scalpel was used to devante the skin at the insertion site. The [id number] needle was then introduced through the skin incision into the pleural space using negative aspiration pressure and the red colometric indicator to confirm appropriate positioning of the needle. The thoracentesis catheter was then threaded without difficulty. 500 ml of turbid colored fluid was removed without difficulty. The catheter was then removed. No immediate complications were noted during the procedure. A post-procedure chest x-ray is pending at the time of this note. The fluid will be sent for studies. Estimated blood loss is 0cc
--- NOTE | 2021-03-19 13:29 | XR ---
EXAMINATION TYPE: XR chest 1V portable DATE OF EXAM: 03/19/2021 COMPARISON: Most recent PET/CT February 19, 2021 HISTORY: Post right-sided thoracentesis. TECHNIQUE: Single AP portable frontal upright view of the chest is obtained. FINDINGS: Osseous structures remain demineralized. Persistent cardiomegaly with atherosclerotic thor acic aorta. Persistent small right basilar pleural effusion. No pneumothorax after thoracentesis. Lef t lung remains clear. Scattered chronic parenchyma changes redemonstrated. IMPRESSION: No pneumothorax after right-sided thoracentesis.
[2021-03-19 14:28] VITALS: BP 124/78; PULSE 69; RESP 18
== END ==
LOC: PROCWHC3 10:41
PROVIDERS: ATTEND Internal Medicine Critical Care Medicine
DX: J90 Pleural effusion, not elsewhere classified (principal); Z79.899 Other long term (current) drug therapy; I11.0 Hypertensive heart disease with heart failure; I50.22 Chronic systolic (congestive) heart failure; Z86.718 Personal history of other venous thrombosis and embolism; Z79.01 Long term (current) use of anticoagulants; E78.5 Hyperlipidemia, unspecified; I48.0 Paroxysmal atrial fibrillation; I48.91 Unspecified atrial fibrillation; D50.9 Iron deficiency anemia, unspecified; Z85.46 Personal history of malignant neoplasm of prostate; Z85.828 Personal history of other malignant neoplasm of skin
CPT/HCPCS: 32554; 71045; 85610